=== PATIENT | male | born 2000 | race Caucasian/White ===

== ENCOUNTER 2021-10-09 10:36 | Emergency (ER) | payer OTHER ==
--- NOTE | 2021-10-09 12:03 | RAD REPORT ---
EXAM DESCRIPTION: RAD - Hand Left 3 View - 10/09/2021 11:51 am CLINICAL HISTORY: cut wiht boat propeller COMPARISON: None. FINDINGS: No fracture, dislocation or periosteal reaction noted. No acute bone or joint finding iden tified. Soft tissue wound is evident ventral side base of the hand near the wrist joint. No foreign body is s een in the soft tissues. IMPRESSION: Ventral surface base of the hand soft tissue wound with no foreign body. No acute bone or joint finding in the left hand.
--- NOTE | 2021-10-09 13:14 | ER ---
Nurse's Notes [facility] Name: Mariza Han Age: 20 yrs Sex: Male : 2000 Arrival Date: 10/09/2021 Time: 10:39 Bed DIS3 Private MD: Diagnosis: Laceration without foreign body of left hand Presentation: 10/09 11:29 Chief complaint: Patient states: Laceration to L hand that occurred VIA boat propeller ss yesterday at 1530. Coronavirus screen: Client denies travel out of the [place] in the last 14 days. Ebola Screen: Patient denies exposure to infectious person. Patient denies travel to an Ebola-affected area in the 21 days before illness onset. Initial Sepsis Screen: Does the patient meet any 2 criteria? No. Patient's initial sepsis screen is negative. Does the patient have a suspected source of infection? No. Patient's initial sepsis screen is negative. Risk Assessment: Do you want to hurt yourself or someone else? Patient reports no desire to harm self or others. Onset of symptoms was October 08, 2021. 11:29 Method Of Arrival: Ambulatory ss 11:29 Acuity: HARRY 4 ss Historical: - Allergies: 11:30 No Known Allergies; ss - Home Meds: 11:30 None [Active]; ss - PMHx: 11:30 None; ss - PSHx: 11:30 None; ss - Immunization history:: Client reports having NOT received the Covid vaccine. - Social history:: Smoking status: Patient denies any tobacco usage or history of. Screenin:31 Abuse screen: Denies threats or abuse. Denies injuries from another. Nutritional ss screening: No deficits noted. Tuberculosis screening: Never had TB. Fall Risk None identified. Assessment: 13:31 Reassessment: Patient appears in no apparent distress at this time. Patient and/or ss family updated on plan of care and expected duration. Pain level reassessed. Patient is alert, oriented x 3, equal unlabored respirations, skin warm/dry/pink. Vital Signs: 11:30 BP 136 / 85; Pulse 90; Resp 16; Temp 99.3; Pulse Ox 100% ; Weight 90.72 kg; Height 5 ss ft. 8 in. (172.72 cm); Pain 5/10; 11:30 Body Mass Index 30.41 (90.72 kg, 172.72 cm) ED Course: 10:39 Patient arrived in ED. am2 11:30 Triage completed. ss 11:30 Arm band placed on right wrist. ss 11:50 XRAY Hand LEFT 3 View In Process Unspecified. EDMS 12:55 Jose Sorensen NP is PHCP. pm1 12:55 Carlos Perez MD is Attending Physician. pm1 13:13 Walker Colvin MD is Referral Physician. pm1 13:20 Dressings: Kerlix X 1; left hand non-adherent dressing x 1 left hand Steri strips 1/4 " ss X 2;. Wound care: to laceration located on heel of left hand was cleaned with Hibiclens, Patient tolerated well. 13:31 Heydi Ahuja RN is Primary Nurse. ss 13:31 Patient has correct armband on for positive identification. Bed in low position. ss 13:31 No provider procedures requiring assistance completed. Patient did not have IV access ss during this emergency room visit. Administered Medications: No medications were administered Outcome: 13:14 Discharge ordered by MD. pm1 13:31 Discharged to home ambulatory. ss 13:31 Condition: good 13:31 Discharge instructions given to patient, Instructed on discharge instructions, follow up and referral plans. Demonstrated understanding of instructions, follow-up care, Prescriptions given X 2. 13:32 Patient left the ED. Signatures: Dispatcher [employer] EDNE Heydi Ahuja RN RN Jose Sorensen NP NATURAL FOODS CLERK pm1 Barb Durham am2
--- NOTE | 2021-10-09 13:14 | EDPHYS ---
Physician Documentation [facility] Name: Mariza Han Age: 20 yrs Sex: Male : 2000 Arrival Date: 10/09/2021 Time: 10:39 Bed DIS3 Private MD: ED Physician Carlos Perez HPI: 10/09 13:11 This 20 yrs old Male presents to ER via Ambulatory with complaints of Hand Injury. pm1 13:11 The patient or guardian reports a laceration. The complaints affect the heel of left pm1 hand. Context: The problem was sustained at work, resulted from Laceration from sharpened propeller on engine he is working on. Onset: The symptoms/episode began/occurred yesterday, Almost 1 full day ago. Modifying factors: The symptoms are alleviated by pressure to area, the symptoms are aggravated by nothing. Associated signs and symptoms: The patient has no apparent associated signs or symptoms. Severity of symptoms: in the emergency department the symptoms are unchanged. The patient has not experienced similar symptoms in the past. The patient has not recently seen a physician. Patient reports tetanus up-to-date less than 5 years. Historical: - Allergies: 11:30 No Known Allergies; ss - Home Meds: 11:30 None [Active]; ss - PMHx: 11:30 None; ss - PSHx: 11:30 None; ss - Immunization history:: Client reports having NOT received the Covid vaccine. - Social history:: Smoking status: Patient denies any tobacco usage or history of. ROS: 13:11 Constitutional: Negative for fever, chills, and weight loss, Cardiovascular: Negative pm1 for chest pain, palpitations, and edema, Respiratory: Negative for shortness of breath, cough, wheezing, and pleuritic chest pain, MS/Extremity: Negative for injury and deformity. 13:11 Neuro: Negative for headache, weakness, numbness, tingling, and seizure. 13:11 Skin: Positive for laceration(s), of the heel of left hand, Negative for abrasions, cellulitis. 13:11 All other systems are negative. Exam: 13:11 Constitutional: This is a well developed, well nourished patient who is awake, alert, pm1 and in no acute distress. Head/Face: Normocephalic, atraumatic. 13:11 Back: No spinal tenderness. No costovertebral tenderness. Full range of motion. MS/ Extremity: Pulses equal, no cyanosis. Neurovascular intact. Full, normal range of motion. 13:11 Cardiovascular: Exam negative for acute changes, Rate: normal, Rhythm: Pulses: no pulse deficits are appreciated. 13:11 Respiratory: Exam negative for acute changes, respiratory distress, shortness of breath. 13:11 Skin: injury, laceration(s), the wound is approximately 1 cm(s), with a depth of 0.4 cm(s), of the heel of left hand. 13:11 Neuro: Exam negative for acute changes, Orientation: is normal, Mentation: is normal, Motor: is normal, moves all fours. Vital Signs: 11:30 BP 136 / 85; Pulse 90; Resp 16; Temp 99.3; Pulse Ox 100% ; Weight 90.72 kg; Height 5 ss ft. 8 in. (172.72 cm); Pain 5/10; 11:30 Body Mass Index 30.41 (90.72 kg, 172.72 cm) ss MDM: 13:06 Patient medically screened. pm1 13:11 Data reviewed: vital signs. Data interpreted: Pulse oximetry: on room air is 100 %. pm1 Interpretation: normal. Counseling: I had a detailed discussion with the patient and/or guardian regarding: the historical points, exam findings, and any diagnostic results supporting the discharge/admit diagnosis, radiology results, the need for outpatient follow up, a hand specialist, to return to the emergency department if symptoms worsen or persist or if there are any questions or concerns that arise at home. 10/09 11:34 Order name: XRAY Hand LEFT 3 View; Complete Time: 13:06 ss Administered Medications: No medications were administered Disposition: 15:46 Co-signature as Attending Physician, Carlos Perez MD I agree with the assessment and kdr plan of care. Disposition Summary: 10/09/21 13:14 Discharge Ordered Location: Home pm1 Problem: new pm1 Symptoms: have improved pm1 Condition: Stable pm1 Diagnosis - Laceration without foreign body of left hand pm1 Followup: pm1 - With: Emergency Department - When: As needed - Reason: Worsening of condition Followup: pm1 - With: Walker Colvin MD - When: 2 - 3 days - Reason: Recheck today's complaints, Continuance of care, Re-evaluation by your physician Discharge Instructions: - Discharge Summary Sheet pm1 - Nonsutured Laceration Care pm1 Forms: - Medication Reconciliation Form pm1 - Thank You Letter pm1 - Antibiotic Education pm1 - Prescription Opioid Use pm1 Prescriptions: - Cephalexin 500 mg Oral Capsule - take 1 capsule by ORAL route every 8 hours for 10 days; 30 capsule; Refills: 0, pm1 Product Selection Permitted - Doxycycline Hyclate 100 mg Oral Tablet - take 1 tablet by ORAL route every 12 hours; 20 tablet; Refills: 0, Product pm1 Selection Permitted Signatures: Dispatcher [employer] Carlos Liz MD MD kdr Smirch, Shelby, RN RN ss Jose Sorensen NP ROTARY DRILL OPERATOR pm1
[2021-10-09 13:54] VITALS: BP 136/85; TEMP 99.3; O2SAT 100
== END 2021-10-09 13:32 | disposition home or self-care (01) ==
LOC: ER 10:36
DX: S61.412A Laceration without foreign body of left hand, initial encounter (principal); W45.8XXA Other foreign body or object entering through skin, initial encounter
CPT/HCPCS: 99283